=== PATIENT | female | born 1965 | race Caucasian/White ===

== ENCOUNTER 2025-10-18 12:19 | Inpatient (IN) | payer BC, SELFPAY ==
[2025-10-17 15:51] VITALS: BP 188/115
[2025-10-17 16:27] LABS: Hematocrit 29.7 % (37.0-47.0); Hemoglobin 9.2 g/dL (12.0-16.0); Mean Corp Hgb Conc. 31.0 g/dL (33.0-37.0); Mean Corpuscular Volume 100.7 fL (81.0-99.0); Nucleated Red Blood Cells % 0 %; Platelet Count 289 10^3/uL (130-400); Red Cell Dist. Width 13.6 % (11.5-14.5)
--- NOTE | 2025-10-17 16:32 | ED.GENMED ---
History of Present Illness
<Yared Rodgers PA-C - Last Filed: 10/17/25 23:50>
General
Chief Complaint: Abnormal Lab Value
Source: patient, records and spouse
Time Seen by Provider: 10/17/25 16:05
History of Present Illness
History of Present Illness:
60-year-old female with no reported previous medical history presenting to the ER at the request of her primary care provider who performed outpatient labs showing significantly elevated renal function with a GFR of 13, BUN of 42 and a creatinine of
3 (triage noted however the showed me paperwork stating ). Patient states that she is otherwise in her usual state of health and has no physical concerns at this time. Patient does note a self diagnosis of arthritis and does
take frequent anti-inflammatories (estimates at least 4-5 times per week). Father has a history of polycystic kidney disease and patient had previously been screened for this and had cysts in the past but never followed up with anybody continuously
or monitored for this. She denies any abdominal pain, nausea or vomiting, urinary symptoms, bowel changes, chest pain or shortness of breath. No other history of similar.
Past History
<Yared Rodgers PA-C - Last Filed: 10/17/25 23:50>
Past History
ED Past Medical History: None
ED Past Surgical History: Orthopedic and Tonsilectomy
Social History
Tobacco: Non-smoker
Alcohol: None
Drug: None
Personal:
Living: with family
Review of Systems
<Yared Rodgers PA-C - Last Filed: 10/17/25 23:50>
Review of Systems
All Other Systems: ROS reviewed and negative except as documented in HPI and ROS
Phy Exam
<Yared Rodgers PA-C - Last Filed: 10/17/25 23:50>
Physical Exam
Physical Exam:
GENERAL: Alert , in no apparent distress
HEAD: Normocephalic atraumatic
EYE: conjunctiva clear
NECK: Supple
ENT: o/p clr, mmm.
CARDIAC: Regular rate and rhythm
LUNGS: Clear breath sounds bilaterally, no acute respiratory distress, no wheezes/rales/rhonchi
ABDOMEN: Soft, nontender, nondistended
NEUROLOGICAL: Alert and oriented
SKIN: Warm and dry, skin intact.
MUSCULOSKELETAL: well perfused.
PSYCH: Normal and appropriate interaction.
Scores
<Yared Rodgers PA-C - Last Filed: 10/17/25 23:50>
Heart Failure Risk
Heart Failure Risk Score: Not Applicable
Heart Score for Chest Pain Patients
STEMI patient?: Not applicable
Withdrawal Assessment of Alcohol
Withdrawal Assessment Completed?: Not applicable
Course
<Yared Rodgers PA-C - Last Filed: 10/17/25 23:50>
Orders/Labs/Results
Orders:
Orders
10/17/25 16:08
Electrocardiogram (*1) Urgent
Reason for Study: Other
Other Reason for Exam: renal failure
EKG- Treatment ONCE
Urinalysis Reflex To Culture Urgent
10/17/25 16:13
Complete Blood Count/With Diff Urgent
Comprehensive Metabolic Panel Urgent
Creatine Phosphokinase Urgent
Comment: ADD ON
Magnesium Urgent
Phosphorus Urgent
Comment: ADD ON
10/17/25 16:34
Add On- LAB Urgent
Tests Added?: CPK
10/17/25 16:35
US Kidneys [US Renal Only W/O Bladder] Urgent
Comment:
Reason For Exam: new onset renal failure, FHx PKD
10/17/25 17:26
Add On- LAB Urgent
Tests Added?: Phosphorus
10/17/25 17:40
0.9% Sodium Chloride 1000 ml [Nss] 1,000 ml IV BOLUS
10/17/25 17:46
Admit/Transfer Patient As Directed
Co-Sign Provider:
Level of Care: Observation services
Assign to:: Telemetry
Physician / Group: Jagjit
Diagnosis: CKD, PCKD, Anemia
Reason for Telemetry: Arrhythmia
Date to Stop Telemetry: 10/20/25
Time to Stop Telemetry: 11:00
Code Status As Directed
Resuscitation Status: Full Code
PRN Pain Medication Management As Directed
May give lesser potent ordered pain med per pt: Yes
preference::
Protocol:: Medication orders for pain may be administered in a
manner that supports deferring to patient preference
when the pt is:
- Requesting an ordered lesser potent pain medication.
Least to most potent pain medications are defined
as: acetaminophen < NSAID < tramadol < opioids
(morphine, oxycodone, hydromorphone).
- Requesting a lesser dose of the same medication IF
ORDERED.
- Requesting a less intrusive route of administration
if both routes are prescribed by the provider (PO <
IV).
10/17/25 17:49
Amlodipine [Norvasc] 5 mg PO NOW STA
10/17/25 19:50
Acetaminophen [Tylenol] 650 mg PO Q4HPRN PRN
HydrALAZINE [Apresoline] 5 mg IV Q6HPRN PRN
10/17/25 19:50
NEPHROLOGY CONSULT Routine
Consulting Provider: Bere Tirado
Was physician already notified: Yes
Reason for consult: CKD, PCKD
Urine Protein/Creat Ratio (Random) [Protein/Creat Ratio (Random)] Routine
Activity As Directed
Activity Level: Ambulate
Bladder Scan As Directed
Follow Bladder Retention/Intermittent Cath Algorithm?: Yes
PRN if no void in __ hours: 6
Frequency: Per Retention Algorithm
If Bladder Scan Result >: 400
then:: Straight cath
Hemetest Stools As Directed
I/O [Intake/ Output] As Directed
Frequency: Per unit guidelines
Pneumatic Compression Sleeves As Directed
Type: Knee high
Straight Cath As Directed
Frequency: Per Retention Algorithm
Additional Instructions: straight cath as needed per acute urinary retention algorithm for 24 hrs
Additional Instructions: for bladder scan greater than 400 mL
Vital Signs As Directed
Frequency: Per unit guidelines
Weight As Directed
Frequency: Daily
Oxygen Therapy [O2 Therapy] [RESP] Routine
Titrate/Wean O2 to maintain O2 sat greater than (%): 94
DX Deep Vein Thrombosis Video Routine
10/17/25 20:45
B12 [Vitamin B12] Routine
Ferritin Routine
Folate Routine
Iron Routine
Total Iron Binding Routine
10/18/25 06:00
Basic Metabolic Panel IN AM
Complete Blood Count/No Diff IN AM
10/18/25 08:00
Amlodipine [Norvasc] 5 mg PO DAILY
10/20/25 11:00
DC Protocol for Telemetry ONCE
Abnormal Lab Results
10/17/25
16:13
RBC 2.95 L 10^6/uL
(4.20-5.40)
Hgb 9.2 L g/dL
(12.0-16.0)
Hct 29.7 L %
(37.0-47.0)
MCV 100.7 H fL
(81.0-99.0)
MCH 31.2 H pg
(27.0-31.0)
MCHC 31.0 L g/dL
(33.0-37.0)
Chloride 110 H mmol/L
(98-107)
Carbon Dioxide 15 L mmol/L
(22-30)
BUN 48 H mg/dl
(7-17)
Creatinine 3.4 H mg/dL
(0.6-1.0)
Phosphorus 5.8 H mg/dl
(2.5-4.5)
Creatine Kinase 345 H U/L
(30-135)
10/17/25 16:13
10/17/25 16:13
Vital Signs
Initial and Last Documented VS:
Initial Vital Signs
Temp Pulse Resp BP Pulse Ox
98 F 81 16 188/115 96
10/17/25 15:51 10/17/25 15:51 10/17/25 15:51 10/17/25 15:51 10/17/25 15:51
Last Documented Vital Signs
Temp Pulse Resp BP Pulse Ox
98.1 F 72 16 158/72 90
10/17/25 23:37 10/17/25 23:37 10/17/25 23:37 10/17/25 23:37 10/17/25 23:37
<Hortensia Powers, DO - Last Filed: 10/17/25 17:44>
Orders/Labs/Results
Orders:
Orders
10/17/25 16:08
Electrocardiogram (*1) Urgent
Reason for Study: Other
Other Reason for Exam: renal failure
EKG- Treatment ONCE
Urinalysis Reflex To Culture Urgent
10/17/25 16:13
Complete Blood Count/With Diff Urgent
Comprehensive Metabolic Panel Urgent
Creatine Phosphokinase Urgent
Comment: ADD ON
Magnesium Urgent
Phosphorus Urgent
Comment: ADD ON
10/17/25 16:34
Add On- LAB Urgent
Tests Added?: CPK
10/17/25 16:35
US Kidneys [US Renal Only W/O Bladder] Urgent
Comment:
Reason For Exam: new onset renal failure, FHx PKD
10/17/25 17:26
Add On- LAB Urgent
Tests Added?: Phosphorus
10/17/25 17:40
0.9% Sodium Chloride 1000 ml [Nss] 1,000 ml IV BOLUS
10/17/25 17:46
Admit/Transfer Patient As Directed
Co-Sign Provider:
Level of Care: Observation services
Assign to:: Telemetry
Physician / Group: Jagjit
Diagnosis: CKD, PCKD, Anemia
Reason for Telemetry: Arrhythmia
Date to Stop Telemetry: 10/20/25
Time to Stop Telemetry: 11:00
Code Status As Directed
Resuscitation Status: Full Code
PRN Pain Medication Management As Directed
May give lesser potent ordered pain med per pt: Yes
preference::
Protocol:: Medication orders for pain may be administered in a
manner that supports deferring to patient preference
when the pt is:
- Requesting an ordered lesser potent pain medication.
Least to most potent pain medications are defined
as: acetaminophen < NSAID < tramadol < opioids
(morphine, oxycodone, hydromorphone).
- Requesting a lesser dose of the same medication IF
ORDERED.
- Requesting a less intrusive route of administration
if both routes are prescribed by the provider (PO <
IV).
10/17/25 17:49
Amlodipine [Norvasc] 5 mg PO NOW STA
10/17/25 19:50
Acetaminophen [Tylenol] 650 mg PO Q4HPRN PRN
HydrALAZINE [Apresoline] 5 mg IV Q6HPRN PRN
10/17/25 19:50
NEPHROLOGY CONSULT Routine
Consulting Provider: Bere Tirado
Was physician already notified: Yes
Reason for consult: CKD, PCKD
Urine Protein/Creat Ratio (Random) [Protein/Creat Ratio (Random)] Routine
Activity As Directed
Activity Level: Ambulate
Bladder Scan As Directed
Follow Bladder Retention/Intermittent Cath Algorithm?: Yes
PRN if no void in __ hours: 6
Frequency: Per Retention Algorithm
If Bladder Scan Result >: 400
then:: Straight cath
Hemetest Stools As Directed
I/O [Intake/ Output] As Directed
Frequency: Per unit guidelines
Pneumatic Compression Sleeves As Directed
Type: Knee high
Straight Cath As Directed
Frequency: Per Retention Algorithm
Additional Instructions: straight cath as needed per acute urinary retention algorithm for 24 hrs
Additional Instructions: for bladder scan greater than 400 mL
Vital Signs As Directed
Frequency: Per unit guidelines
Weight As Directed
Frequency: Daily
Oxygen Therapy [O2 Therapy] [RESP] Routine
Titrate/Wean O2 to maintain O2 sat greater than (%): 94
DX Deep Vein Thrombosis Video Routine
10/17/25 20:45
B12 [Vitamin B12] Routine
Ferritin Routine
Folate Routine
Iron Routine
Total Iron Binding Routine
10/18/25 06:00
Basic Metabolic Panel IN AM
Complete Blood Count/No Diff IN AM
10/18/25 08:00
Amlodipine [Norvasc] 5 mg PO DAILY
10/20/25 11:00
DC Protocol for Telemetry ONCE
Abnormal Lab Results
10/17/25
16:13
RBC 2.95 L 10^6/uL
(4.20-5.40)
Hgb 9.2 L g/dL
(12.0-16.0)
Hct 29.7 L %
(37.0-47.0)
MCV 100.7 H fL
(81.0-99.0)
MCH 31.2 H pg
(27.0-31.0)
MCHC 31.0 L g/dL
(33.0-37.0)
Chloride 110 H mmol/L
(98-107)
Carbon Dioxide 15 L mmol/L
(22-30)
BUN 48 H mg/dl
(7-17)
Creatinine 3.4 H mg/dL
(0.6-1.0)
Phosphorus 5.8 H mg/dl
(2.5-4.5)
Creatine Kinase 345 H U/L
(30-135)
10/17/25 16:13
10/17/25 16:13
Vital Signs
Initial and Last Documented VS:
Initial Vital Signs
Temp Pulse Resp BP Pulse Ox
98 F 81 16 188/115 96
10/17/25 15:51 10/17/25 15:51 10/17/25 15:51 10/17/25 15:51 10/17/25 15:51
Last Documented Vital Signs
Temp Pulse Resp BP Pulse Ox
98.1 F 72 16 158/72 90
10/17/25 23:37 10/17/25 23:37 10/17/25 23:37 10/17/25 23:37 10/17/25 23:37
<Yared Rodgers PA-C - Last Filed: 10/17/25 23:50>
MDM/Problems Addressed
Differential Diagnosis Includes:
Polycystic kidney disease
Uncontrolled hypertension
Uncontrolled/new onset diabetes
Renal artery stenosis
Complications from frequent NSAID use
Obstruction
Electrolyte imbalance
MDM/Problems Addressed:
60-year-old female presenting to the ER from home at the request of her primary care provider after having abnormal outpatient lab test done showing significantly elevated renal function. Patient denies any history of similar, currently not on any
medications but does note taking frequent NSAIDs secondary to various joint pains. Family history of polycystic kidney disease but patient has not been followed or monitored for this. Presently asymptomatic. Vital signs in triage noted for
profound hypertension. Anticipate admission with need for nephrology and consults.
<Yared Rodgers PA-C - Last Filed: 10/17/25 23:50>
*Radiology
Radiology exam reviewed: radiology read reviewed
*Pulse Oximetry
SaO2: 96
Oxygen Mode of Delivery: Room air
Patient hypoxic: no
*Order Administrator Interpretation
Rate: normal
Heart Rate: 68
Rhythm: sinus
*Critical Care Note
Total Time (30-74mins, 75-104mins- exclusive of procedures): Not Applicable
<Yared Rodgers PA-C - Last Filed: 10/17/25 23:50>
Patient Management
Discussion with other providers: Hospitalist
Escalation/DeEscalation of care consider admission/obs:
US consistent with PKD. Patient still has other potential risk factors for her renal dysfunction including uncontrolled hypertension as well as frequent NSAID use. Plan to admit to hospitalist service with nephrology in consult. Hospitalist team
accepts for admission.
ED Attending Note
<Yared Rodgers PA-C - Last Filed: 10/17/25 23:50>
-
Portions of this chart may have been created with voice recognition software.� Occasional wrong word or��sound alike� substitutions may have occurred due to the inherent limitations of voice recognition software.
<Hortensia Powers DO - Last Filed: 10/17/25 17:44>
ED Attending Note
Patient seen and examined by attending physician: Yes
I performed the substantive portion of visit, reviewed & personally made and approve the management plan that is documented in note by myself or BEE.: Yes
I performed a history and physical exam of patient and discussed management with resident, I reviewed resident's note and agree with documented findings and plan of care.: Yes
ED Attending Note:
60-year-old female without reported past medical history presenting to the emergency department for concern of acute on chronic renal failure. Patient establish care with a primary care doctor today, had laboratory analysis drawn which showed
significant renal dysfunction. Patient denies any known history. Was also reported to be hypertensive at the office visit. She subsequently was advised to come to the ER. Does note family history of polycystic kidney disease. Denies any known
personal history of polycystic kidney disease. Denies any changes in her urination. Denies chest pain or difficulty breathing or additional acute medical complaints.
Vital signs on arrival are significant for high blood pressure. On exam, patient is in no acute distress, currently asymptomatic. Patient had laboratory analysis drawn, consistent with renal dysfunction with a creatinine of 3.2 and BUN in the 40s.
Ultrasound performed and reviewed which does show multiple renal cysts. Concern for possible polycystic kidney disease. Also suspect underlying hypertension, made worse by kidney disease or vice versa. Given new finding for patient, plan for
admission for nephrology and cardiac consultation.
Discharge Plan
Departure
Patient Disposition: Admit
Date of Disposition: 10/17/25
Time of Disposition: 17:22
Presentation/result/management discussed w/ accepting MD/DO: Hospitalist
Discharge Problem:
Renal failure, Anemia
Interventions
Interventions:
*Risk Screen - Suicide Last Done: 10/17/25 20:17
*General Assessment Last Done: 10/17/25 16:22
*Neglect/Abuse Screening Last Done: 10/17/25 15:51
*ED- Fall Risk Assessment Last Done: 10/17/25 16:22
*ED COVID-19 Vaccine History Last Done: 10/17/25 20:17
*ED Influenza Vaccine History Last Done: 10/17/25 16:22
*Nursing Disposition Last Done: 10/17/25 19:46
Discharge Date and Time
Discharge Date/Time: 10/17/25 19:47
[2025-10-17 16:42] LABS: ALT (SGPT) 16 U/L (0-35); AST (SGOT) 24 U/L (14-36); Albumin 4.4 g/dl (3.5-5.0); Alkaline Phosphatase 85 U/L (38-126); Blood Urea Nitrogen 48 mg/dl (7-17); Calcium 9.4 mg/dl (8.4-10.2); Carbon Dioxide 15 mmol/L (22-30); Chloride 110 mmol/L (98-107); Glucose 95 mg/dl (70-99); Magnesium 2.2 mg/dl (1.6-2.3); Potassium 4.5 mmol/L (3.5-5.1); Sodium 135 mmol/L (135-145); Total Protein 7.5 g/dl (6.3-8.2); eGFR 14.67
[2025-10-17 17:16] VITALS: BP 190/91
[2025-10-17] MEDS: NSS 1000 IV (17:45)
--- NOTE | 2025-10-17 17:49 | HPS.HSE ---
Family Physician
-
Family Physician: BLANE Hensley
Chief Complaint
-
Abnormal Labs
History of Present Illness
Patient is a 60y F with no significant PMH who presents to ED for evaluation of abnormal outpatient labs. Patient states that she had labs done last which were abnormal. She had repeat labs on Tuesday that remained abnormal. She was
contacted today and advised to present to the ED. Patient denies any complaints. She takes no chronic medications.
Patient does state that she has taken Advil or Aleve off-and-on for the past few years - taking daily for weeks at a time with brief breaks in between.
She has known family history of polycystic kidneys and was noted to have 'some cysts' herself when she had US done during .
She has not had regular follow-up / routine medical care. She states that her last blood tests were about 3 years ago.
Medical History
Past Medical History
Past Medical History: Reports Other
Additional Past Medical History:
Polycystic Kidney Disease
Past Surgical History: Reports Other
Additional Past Surgical History:
T&A
Left Knee Arthroscopy
Social History
Tobacco: Former Smoker (Quit smoking 1 year ago. Approx 40 pack years total use.)
Alcohol: Occasional
Drug: None
Personal:
Living: With Family
Family History
Family History: Other (Father: Polycystic Kidneys, HTN Mother: HTN, GARCÍA)
Allergies / Home Medications
Allergies reflects when Allergies were last updated in [facility].
Home Medications with original date entered in [facility]
Allergy/Medication List:
Allergies
Allergy/AdvReac Type Severity Reaction Status Date / Time
Sulfa (Sulfonamide Allergy Unknown Verified 10/17/25 15:55
Antibiotics)
Home Medications
No Meds [No Current Medications] 10/17/25
Review of Systems
-
History Source: Patient
A 12 point ROS was completed and negative except as noted: Yes
Constitutional: Denies Fever, Weight Gain, Weight Loss, Fatigue or Chills
Respiratory: Denies Cough or Trouble Breathing
Cardiac: Denies Chest Pain or Palpitations
Abdomen/GI: Denies Abdominal Pain, Nausea, Vomiting or Diarrhea
: Denies Dysuria, Frequency, Flank Pain or Bleeding
Musculoskeletal: Denies Joint Pain or Edema
Neurological: Denies Dizzy or Headache
Psych: Denies Depression or Anxiety
Physical Exam
Vital Signs
Vital Signs
Temp Pulse Resp BP Pulse Ox
98 F 69 13 190/91 96
10/17/25 15:51 10/17/25 17:16 10/17/25 17:16 10/17/25 17:16 10/17/25 16:34
Physical Exam
General: Other (60y F in no distress.)
HEENT: Moist mucous membranes and PERRLA
Respiratory: Clear; No Wheezes, Rales or Rhonchi
Cardiac: S1/S2 and Regular Rhythm; No Murmur
GI: Soft, Non Tender, Non Distended and Normal Bowel Sounds
Musculoskeletal: No Clubbing, No Cyanosis and No Edema
Neuro: AO x 3
Laboratory Results
-
10/17/25 16:13
10/17/25 16:13
Laboratory Results
Total Bilirubin 0.6 mg/dl (0.2-1.3) 10/17/25 16:13
AST 24 U/L (14-36) 10/17/25 16:13
ALT 16 U/L (0-35) 10/17/25 16:13
Alkaline Phosphatase 85 U/L (38-126) 10/17/25 16:13
Impression/Plan
-
A/P: Patient is a 60y F with no known PMH who presents to ED for evaluation of abnormal labs.
Renal Insufficiency
Polycystic Kidney Disease
Non-Gapped Metabolic Acidosis
- Observe overnight for further evaluation and treatment.
- This is very likely progressive CKD secondary to PKD and HTN. Doubt ADRIANA.
- Renal US shows significant b/l cystic changes. Formal report pending.
- Nephrology evaluation.
- Check protein:creatinine ratio.
- May benefit from PO bicarbonate supplementation.
- Follow for any changes in renal function, labs / lytes.
- Avoid further NSAIDs.
Benign Hypertension
- BP markedly elevated in the ED - again, suspect this is chronic / long-standing.
- Begin amlodipine now and daily.
- IV hydralazine PRN very high BP.
- Adjust med regimen as needed for improved control and per Nephrology recommendations.
Macrocytic Anemia
- Unknown acuity / chronicity - but again suspect this is chronic / progressive.
- Likely due to CKD - but potential component of GI disease given chronic NSAID use.
- Heme test stools. Iron studies, B12, folate, etc.
- Follow H&H for any changes.
DVT Prophylaxis: SCDs
Code Status: Full
[2025-10-17] MEDS: NORVASC 5 MG PO (17:55)
[2025-10-17 18:00] VITALS: BP 200/101
--- NOTE | 2025-10-17 18:06 | CM ---
chart reviewed and spoke with patient at bedside
OBS form reviewed with pt
Live in 1 STH with
independent with ADLs, working 40 hrs at [employer]
Supportive and dtr and SHAQUILLE at ED
no DME
PCP Dr. Radha Jones
RX [facility] in [place]
no hx of VN nor SNF
DCP is to return home
CM will continue to follow up for dcp needs
[2025-10-17 19:00] VITALS: BP 165/98; BP 169/85
[2025-10-17 19:27] VITALS: BP 163/82
[2025-10-17 21:12] LABS: Iron 50 ug/dl (37-170)
[2025-10-17 21:21] LABS: Total Iron Binding Capacity 254 ug/dl (265-497)
[2025-10-17 21:50] LABS: Ferritin 40.6 ng/ml (11.1-264.0)
[2025-10-17 22:21] LABS: Folate 7.2 ng/ml (2.76-20); Vitamin B12 329 pg/ml (239-931)
--- NOTE | 2025-10-17 22:24 | PTCARENOTE ---
pt arrived via stretcher and ambulated to bedside. Pt oriented to unit, bed set in lowest position, call bravo within reach.
[2025-10-17 23:37] VITALS: BP 158/72
[2025-10-18 03:00] VITALS: BP 167/92
[2025-10-18 06:00] LABS: Urine Character Clear (Clear)
[2025-10-18 06:10] LABS: Urine Squamous Cell 16-20 /LPF (Few)
[2025-10-18 06:12] LABS: Urine Red Blood Cell 0-2 /HPF (0-2); Urine White Cell 0-2 /HPF (0-5)
[2025-10-18 07:08] LABS: Hematocrit 26.6 % (37.0-47.0); Hemoglobin 8.8 g/dL (12.0-16.0); Mean Corp Hgb Conc. 33.1 g/dL (33.0-37.0); Mean Corpuscular Volume 92.7 fL (81.0-99.0); Platelet Count 278 10^3/uL (130-400); Red Cell Dist. Width 13.4 % (11.5-14.5)
[2025-10-18 07:36] VITALS: BP 169/97
[2025-10-18 07:54] LABS: Blood Urea Nitrogen 45 mg/dl (7-17); Calcium 8.7 mg/dl (8.4-10.2); Carbon Dioxide 17 mmol/L (22-30); Chloride 114 mmol/L (98-107); Glucose 86 mg/dl (70-99); Potassium 4.4 mmol/L (3.5-5.1); Sodium 137 mmol/L (135-145); eGFR 14.67
[2025-10-18] MEDS: VITAMIN B-12 1000 MCG PO (09:27)
[2025-10-18] MEDS: NORVASC 5 MG PO (09:28)
[2025-10-18] MEDS: SODIUM BICARBONATE 650 MG PO ×3 (09:30→21:25)
[2025-10-18] MEDS: NSS 1000 IV (09:30)
--- NOTE | 2025-10-18 10:21 | W.CON.NEPH ---
Consultation
-
Date/Time Consultation Requested: 10/17/2025 7:00 PM
Date/Time Consultation Performed: 10/18/2025 10:15 AM
Requesting Provider: Dr. Bonds
Performing Provider: Dr. Guerra
Reason for Consultation: Acute kidney injury/hypertension/metabolic acidosis
Medical History
-
Chief Complaint: Acute kidney injury/hypertension/metabolic acidosis
History of Present Illness:
The patient is a 60-year-old female with no significant PMH who presents to ED for evaluation of abnormal outpatient labs. Patient states that she had labs done last which were abnormal. She had repeat labs on Tuesday that remained
abnormal. She was contacted advised to present to the ED. Patient denies any complaints. She takes no chronic medications.
Patient does state that she has taken Advil or Aleve off-and-on for the past few years - taking daily for weeks at a time with brief breaks in between.
She has known family history of polycystic kidneys and was noted to have 'some cysts' herself when she had US done during .
She has not had regular follow-up / routine medical care. She states that her last blood tests were about 3 years ago. On presentation she is in acute renal failure with a creatinine of 3.4 with an associated nongap metabolic acidosis and anemia
and nephrology was consulted to see the patient.
Past Medical History
PKD
T&A
Left Knee Arthroscopy
Social History
Tobacco: Former Smoker
Alcohol: None
Drug: None
Personal:
Family History
PKD
Allergies / Home Medications
Allergy/AdvReac Type Severity Reaction Status Date / Time
Sulfa (Sulfonamide Allergy Unknown Verified 10/17/25 15:55
Antibiotics)
�Medication �Instructions �Recorded �Confirmed �Type
No Meds [No Current Medications] 10/17/25 10/17/25 History
Review of Systems
-
History Source: Patient
All other systems: Negative unless noted
Musculoskeletal: Joint Pain
Physical Exam
Vital Signs
Vital Signs
Temp Pulse Resp BP Pulse Ox
97.6 F 61 17 169/97 98
10/18/25 07:36 10/18/25 07:36 10/18/25 07:36 10/18/25 07:36 10/18/25 07:36
Lab Results
10/18/25 06:30
10/18/25 06:30
WBC 5.9 10^3/uL (4.8-10.8) 10/18/25 06:30
RBC 2.87 10^6/uL (4.20-5.40) L 10/18/25 06:30
Hgb 8.8 g/dL (12.0-16.0) L 10/18/25 06:30
Hct 26.6 % (37.0-47.0) L 10/18/25 06:30
Plt Count 278 10^3/uL (130-400) 10/18/25 06:30
Sodium 137 mmol/L (135-145) 10/18/25 06:30
Potassium 4.4 mmol/L (3.5-5.1) 10/18/25 06:30
Chloride 114 mmol/L (98-107) H 10/18/25 06:30
Carbon Dioxide 17 mmol/L (22-30) L 10/18/25 06:30
BUN 45 mg/dl (7-17) H 10/18/25 06:30
Creatinine 3.4 mg/dL (0.6-1.0) H 10/18/25 06:30
eGFR 14.67 10/18/25 06:30
Glucose 86 mg/dl (70-99) 10/18/25 06:30
Calcium 8.7 mg/dl (8.4-10.2) 10/18/25 06:30
Phosphorus 5.8 mg/dl (2.5-4.5) H 10/17/25 16:13
Albumin 4.4 g/dl (3.5-5.0) 10/17/25 16:13
Physical Exam
General: AOx3, Nontoxic , NAD
HEENT: PERRL, EOMI, Anicteric, Conjunctivae Clear, Ear/Nose Intact, Hearing Normal, Oropharynx Clear/Moist, Dentition Intact, Facial Symmetry, Neck Supple, Neck: Trachea Midline, No JVD and No Thyromegaly, no Bruits
Respiratory: Clear to auscultation bilaterally with normal lung exersion
Cardiac: S1/S2 and Regular Rate/Rhythm
Breast: Deferred by me
Abdomen: Soft, Nontender, Nondistended, Normal Bowel Sounds and No Hepatosplenomegaly
Rectal: Deferred by Provider
Genito-urinary: No Costovertebral Tenderness
Extremities: No Clubbing, No Cyanosis and No Edema
Skin: No Rash or open lesions
Neuro: Nonfocal/Grossly Intact, CN II-XII (Intact) and Strength (Musculoskeletal exam 5 out of 5 both upper and lower extremities), no asterixis
Hematologic/Lymphatic: No Cervical Lymphadenopathy, No Submandibular Lymphadenopathy and No Supraclavicular Lymphadenopathy
Psych: Mood/afflect pleasant, Insight/judgement good and Appropriate
Vascular: plus 2 pedal and radial pulses
Data Reviewed
-
Ultrasound: Report Reviewed by me (Kidneys enlarged with left kidney at 6.1 cm right kidney 10.1 cm no hydronephrosis no masses or complex lesions numerous bilateral renal cyst consistent with PKD)
Medical Tests (Nuc Med, Echo etc): Discussed with Patient (EKG personally reviewed noted a sinus rhythm at 68 bpm with some nonspecific ST abnormality)
Labs: Labs Reviewed by me (BMP CBC UA)
Assessment/Plan
-
Impression:
Acute kidney/CKD/likely known history of polycystic kidney disease
Uncontrolled hypertension
Anemia
Nongap metabolic acidosis
Plan:
ADRIANA/CKD 5
- The underlying presumptive diagnosis is that the patient has advancing polycystic kidney disease given her known history of polycystic kidney disease and ultrasound finding
-However she has a significant amount of proteinuria and blood in her urine which could be due to alternative underlying etiology
-Henceforth I will pursue a full autoimmune serological workup and will also include workup for dysproteinemia processes in the setting of her anemia
-In reference to her anemia the aforementioned dysproteinemia workup will be obtained as well as checking iron stores and erythropoietin level
-Of note she has uncontrolled hypertension which we will continue to manage and there may be a component of underlying hypertensive nephrosclerosis as the patient has not had chronic physician care in many years
-I have asked the patient's family to obtain any older records so that I can review previous BMP levels
-In the interim oral sodium HCO3 will be continued along with IV fluid support with normal saline
-Of note patient also takes NSAIDs fairly regularly and this may also be contributing to the decline in her GFR
[2025-10-18 11:14] VITALS: BP 144/85
--- NOTE | 2025-10-18 12:14 | W.PN.HOSP.TC ---
Today's Communication/Plan
-
IV fluids
P.o. bicarb
Better blood pressure control
Assessment / Plan
Assessment / Plan
60 y/o with abnormal labs. She uses NSAID off and On. Probably 3-4 times a week. family H/O PKD
USS kidneys-Numerous bilateral renal cysts consistent with polycystic kidney disease.
CVS: S1-S2 normal
Chest: CTA B/L
Abdomen: Soft, NT / Bowel sounds present
Extremities: No edema
# Renal insufficiency with Nongapped Metabolic acidosis
Family H/O PKD
Renal eval, appreciated- Serologies ordered.
Acute vs Progression of CKD
IVF to be tried.
Uss as above
Moderate proteinuria ( P/C ratio 1.2)
PO bicarb
No NSAIDS or any nephrotoxic agents
Look into Tolvaptan as OP for PKD
Nephrology evaluation
# HTN
Started on Norvasc, watch BP
#Macrocytic anemia
Possible from renal failure
Iron studies noted
Replace low normal B12
Check Erythropoietin level
# DVT Prophylaxis- SCDs
# Full CODE
Patient has not had any labs for the past 3 years. will try and get previous labs which she has had with PCP. I have also requested old records.. But he thinks that a week ago creatinine was 3.6.
Detailed discussion with the patient and at bedside regarding etiologies and also how to avoid further NSAIDs.
Part of this note was created using voice recognition system. Occasional wrong word or��sound alike� substitutions may have inadvertently occurred due to the inherent limitations of voice recognition software. If noted kindly bring it to my
attention for correction.
Anticipated Discharge: 24 - 48 hours
Subjective/Interval History
-
Date of Service: October 18, 2025
Objective Data
-
Labs:
Laboratory Results
10/18/25
06:30
WBC 5.9
Hgb 8.8 L
Hct 26.6 L
Plt Count 278
Sodium 137
Potassium 4.4
Chloride 114 H
Carbon Dioxide 17 L
BUN 45 H
Creatinine 3.4 H
Glucose 86
Calcium 8.7
Vital Signs:
Vital Signs
Temp Pulse Resp BP Pulse Ox
97.8 F 68 17 144/85 97
10/18/25 11:14 10/18/25 11:14 10/18/25 11:14 10/18/25 11:14 10/18/25 11:14
--- NOTE | 2025-10-18 12:51 | CM ---
Addendum entered by Elda Dill 10/18/25 14:17:
TT from [facility] - LOC change to inpatient
Original Note:
Patient seen at bedside
chart reviewed
OBS status-form explained & signed. Placed in chart
PLAN: Home, no needs anticipated when stable
[2025-10-18 15:33] VITALS: BP 140/84
[2025-10-18 19:17] VITALS: BP 130/69
[2025-10-18 23:11] VITALS: BP 146/82
[2025-10-19] MEDS: NSS 1000 IV (00:34)
[2025-10-19 03:00] VITALS: BP 153/91
[2025-10-19] MEDS: NSS IV (07:00)
[2025-10-19 07:59] LABS: Blood Urea Nitrogen 44 mg/dl (7-17); Calcium 8.6 mg/dl (8.4-10.2); Carbon Dioxide 17 mmol/L (22-30); Chloride 113 mmol/L (98-107); Glucose 112 mg/dl (70-99); Iron 49 ug/dl (37-170); Potassium 4.5 mmol/L (3.5-5.1); Sodium 137 mmol/L (135-145); Uric Acid 4.9 mg/dl (2.5-6.2); eGFR 15.20
[2025-10-19] MEDS: VITAMIN B-12 1000 MCG PO (08:21)
[2025-10-19] MEDS: NORVASC 5 MG PO (08:22)
[2025-10-19] MEDS: SODIUM BICARBONATE 650 MG PO (08:23)
[2025-10-19 08:26] LABS: Ferritin 43.0 ng/ml (11.1-264.0)
[2025-10-19 08:28] VITALS: BP 152/99
[2025-10-19 08:28] LABS: Total Iron Binding Capacity 247 ug/dl (265-497)
[2025-10-19 11:37] VITALS: BP 138/69
--- NOTE | 2025-10-19 12:31 | W.PN.NEPH.PH ---
Today's Communication / Plan
-
Stable for discharge
Assessment/Plan
-
Impression:
Acute kidney/CKD/likely known history of polycystic kidney disease
Uncontrolled hypertension
Anemia
Nongap metabolic acidosis
Plan:
ADRIANA/CKD 5
- The underlying presumptive diagnosis is that the patient has advancing polycystic kidney disease given her known history of polycystic kidney disease and ultrasound finding
-However she has a significant amount of proteinuria and blood in her urine which could be due to alternative underlying etiology 1.2 g
-Henceforth I will pursue a full autoimmune serological workup and will also include workup for dysproteinemia processes in the setting of her anemia
-In reference to her anemia the aforementioned dysproteinemia workup will be obtained as well as checking iron stores and erythropoietin level, she did have heme positive stools several years prior but never followed up with colonoscopy which will
have to be done as an outpatient
-Of note she has uncontrolled hypertension which we will continue to manage and there may be a component of underlying hypertensive nephrosclerosis as the patient has not had chronic physician care in many years
-Of note patient also takes NSAIDs fairly regularly and this may also be contributing to the decline in her GFR
Stable for discharge
Discharge on current sodium HCO3 dose and amlodipine 10 mg daily
Will need repeat BMP and hemoglobin done on Tuesday sent to my attention
We will arrange follow-up within the next few weeks at my office even though patient does not have an insurance that we take (family informed about costs of visits)
She will eventually need to follow-up with a experimental display builder who is contracted with her insurance company but we will take care of her until that can be established
-
-
Date of Service: October 19, 2025
CC / HPI / ROS
-
Chief Complaint:
ADRIANA/CKD/PKD
History of Present Illness:
Creatinine unchanged at 3.3
Hemodynamically stable on amlodipine
Review of Systems:
Nonoliguric
No chest pain or shortness breath
Labs
-
Labs:
WBC 5.9 10^3/uL (4.8-10.8) 10/18/25 06:30
RBC 2.87 10^6/uL (4.20-5.40) L 10/18/25 06:30
Hgb 8.8 g/dL (12.0-16.0) L 10/18/25 06:30
Hct 26.6 % (37.0-47.0) L 10/18/25 06:30
Plt Count 278 10^3/uL (130-400) 10/18/25 06:30
Sodium 137 mmol/L (135-145) 10/19/25 06:42
Potassium 4.5 mmol/L (3.5-5.1) 10/19/25 06:42
Chloride 113 mmol/L (98-107) H 10/19/25 06:42
Carbon Dioxide 17 mmol/L (22-30) L 10/19/25 06:42
BUN 44 mg/dl (7-17) H 10/19/25 06:42
Creatinine 3.3 mg/dL (0.6-1.0) H 10/19/25 06:42
eGFR 15.20 10/19/25 06:42
Glucose 112 mg/dl (70-99) H 10/19/25 06:42
Calcium 8.6 mg/dl (8.4-10.2) 10/19/25 06:42
Phosphorus 4.7 mg/dl (2.5-4.5) H 10/19/25 06:42
Albumin 4.4 g/dl (3.5-5.0) 10/17/25 16:13
Physical Exam
-
Vital Signs:
Vital Signs
Temp Pulse Resp BP Pulse Ox
97.6 F 72 22 138/69 99
10/19/25 11:37 10/19/25 11:37 10/19/25 11:37 10/19/25 11:37 10/19/25 11:37
Cardiovascular:: Regular rate and rhythm
Respiratory:: Bilateral: CTA
Lung Excursion:: Normal
Abdomen:: Nontender and Soft
Bowel Sounds:: Normal
Extremity Edema:: None: Bilateral:
Estrada Catheter: No
--- NOTE | 2025-10-19 13:14 | W.PN.HOSP.TC ---
Today's Communication/Plan
-
Discharge
Assessment / Plan
Assessment / Plan
60 y/o with abnormal labs. She uses NSAID off and On. Probably 3-4 times a week. family H/O PKD
USS kidneys-Numerous bilateral renal cysts consistent with polycystic kidney disease.
CVS: S1-S2 normal
Chest: CTA B/L
Abdomen: Soft, NT / Bowel sounds present
Extremities: No edema
No new complaints from overnight
# Renal insufficiency with Nongapped Metabolic acidosis
Family H/O PKD
Renal eval, appreciated- Serologies ordered.
Acute vs Progression of CKD
IVF to be stopped
Uss as above
Moderate proteinuria ( P/C ratio 1.2)
PO bicarb
No NSAIDS or any nephrotoxic agents
Nephrology evaluation noted and appreciated
Serologies pending
Outpatient serologies reviewed, outpatient labs reviewed creatinine was 3.5 and 3.6 respectively. VINCENT slightly elevated but titer was not elevated
# HTN
Started on Norvasc, increased to 10 mg
# Arthritis with deformities of multiple fingers-outpatient rheumatology evaluation rule out rheumatoid arthritis
#Macrocytic anemia
Possible from renal failure
Iron studies noted
Replace low normal B12
Check Erythropoietin level-pending discharge
# DVT Prophylaxis- SCDs
# Full CODE
Discussed with patient and family at bedside to avoid any further NSAIDs or any nephrotoxic agents. She is advised to take Tylenol for pain if she had pain. Also discussed about following up with a recreation programmer as outpatient.
She is also aware that she has many serologies and Euthroid level pending at discharge. This will require follow-up with nephrology. She has decided to follow-up with Dr. Guerra for the time being. I have given her a prescription for lab work to
be done as outpatient sometime next week with results to go to nephrology.
They had a lot of questions all were answered
Discussed nephrology
More than 30 minutes spent in discharge including
Final examination of the patient
Summarizing hospital stay
Instructions for continuing care to all relevant caregivers
Preparation of discharge records, prescriptions, and referral forms
Part of this note was created using voice recognition system. Occasional wrong word or��sound alike� substitutions may have inadvertently occurred due to the inherent limitations of voice recognition software. If noted kindly bring it to my
attention for correction.
Anticipated Discharge: Today
Subjective/Interval History
-
Date of Service: October 19, 2025
Objective Data
-
Labs:
Laboratory Results
10/19/25
06:42
Sodium 137
Potassium 4.5
Chloride 113 H
Carbon Dioxide 17 L
BUN 44 H
Creatinine 3.3 H
Glucose 112 H
Calcium 8.6
Vital Signs:
Vital Signs
Temp Pulse Resp BP Pulse Ox
97.6 F 72 22 138/69 99
10/19/25 11:37 10/19/25 11:37 10/19/25 11:37 10/19/25 11:37 10/19/25 11:37
I&O
10/18/25 10/19/25 10/20/25
06:59 06:59 06:59
Intake Total 1200 / 1200
Balance 1200 / 1200
--- NOTE | 2025-10-19 13:19 | W.DS.TRANS ---
Addendum entered and electronically signed by Twan Bonds MD 10/19/25 14:25:
Dictation-[id number]
Original Note:
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
-
Discharge Instructions:
Discharge Diagnosis/Procedures Renal failure with elevated creatinine acute
versus chronic
Metabolic acidosis
Hyperparathyroidism-secondary
Hypertension
Anemia
Diet 2 Gram Sodium
Activity As tolerated
Driving Restrictions As prior to admission
Instructions:
Stand-Alone Forms:
Changes to Home Medications: Yes
Discharge Medications:
DC Medications w/original date entered in [employer]
amlodipine 10 mg tablet 10 mg PO DAILY Blood pressure #30 tabs 10/19/25
cyanocobalamin (vitamin B-12) 500 mcg tablet 1,000 mcg (2 x 500 mcg) PO DAILY Supplement #0 tabs 10/19/25
sodium bicarbonate 650 mg tablet 650 mg PO TID Kidney Disease #90 tabs 10/19/25
Home Medication Changes
All above medicines are new
Pending Results: Yes
Additional Pending Results:
SPEP, phospholipid A2, VINCENT, complements, myeloperoxidase, proteinase, erythropoietin level
[2025-10-20 05:23] LABS: Free Kappa Light Chains,Quant 58.95 mg/L (3.30-19.40); Free Lambda Light Chains,Quant 37.74 mg/L (5.71-26.30); Kappa/Lambda Fr Light Ratio 1.56 (0.26-1.65)
[2025-10-21 21:49] LABS: ANA, IgG Reflex to HEp-2 None Detected (None Detected)
== END 2025-10-19 14:22 | disposition home or self-care (01) | DRG 683 ==
LOC: 3 WEST ACU 12:19
PROVIDERS: Physician Assistant Medical; ADMITTING PHYSICIAN Hospitalist; ATTENDING PHYSICIAN Hospitalist; EMERGENCY PHYSICIAN Student in an Organized Health Care Education/Training Program; FAMILY PHYSICIAN Nurse Practitioner Family; OTHER PHYSICIAN Specialist
DX: N18.5 Chronic kidney disease, stage 5 (principal); E87.20 Acidosis, unspecified; Q61.3 Polycystic kidney, unspecified; I15.1 Hypertension secondary to other renal disorders; D53.9 Nutritional anemia, unspecified; E21.3 Hyperparathyroidism, unspecified; Z79.899 Other long term (current) drug therapy; Z87.891 Personal history of nicotine dependence
CPT/HCPCS: 76775; 80048; 80053; 81003; 81015; 82550; 82570; 82607; 82668; 82728; 82746; 83516; 83521; 83540; 83550; 83735; 83970; 84100; 84155; 84156; 84165; 84550; 85025; 85027; 86038; 86160; 86255; 93005; 96360; 99285